=== PATIENT | female | born 1965 | race American Indian/Alaskan Native ===

== ENCOUNTER 2024-06-26 14:02 | Outpatient (RCR) | payer MEDICAID, SELFPAY | END 2024-07-21 23:59 | disposition home or self-care (01) | LOC: SCTC 14:02 | PROVIDERS: PCP Nurse Practitioner Family; Referring Provider Nurse Practitioner Family; Visit Provider Nurse Practitioner Family | DX: D72.820 Lymphocytosis (symptomatic) (principal); R59.0 Localized enlarged lymph nodes; R10.32 Left lower quadrant pain; F17.210 Nicotine dependence, cigarettes, uncomplicated; I10 Essential (primary) hypertension; E11.9 Type 2 diabetes mellitus without complications; E78.5 Hyperlipidemia, unspecified; Z87.19 Personal history of other diseases of the digestive system | CPT/HCPCS: 99212; G0463 ==

== ENCOUNTER 2024-07-25 10:35 | Outpatient (RCR) | payer MEDICAID, SELFPAY | END 2024-08-21 23:59 | disposition home or self-care (01) | LOC: SCTC 10:35 | PROVIDERS: PCP Internal Medicine; Referring Provider Nurse Practitioner Family; Visit Provider Nurse Practitioner Family | DX: R59.0 Localized enlarged lymph nodes (principal); R10.32 Left lower quadrant pain; E21.3 Hyperparathyroidism, unspecified; E83.52 Hypercalcemia; F17.210 Nicotine dependence, cigarettes, uncomplicated; I10 Essential (primary) hypertension; E11.9 Type 2 diabetes mellitus without complications; E78.5 Hyperlipidemia, unspecified | CPT/HCPCS: 99212; G0463 ==

== ENCOUNTER → 2024-08-08 | Outpatient (CLI) | payer MEDICAID, SELFPAY ==
--- NOTE | 2024-08-08 11:30 | XR_ITS ---
Examination: Ultrasound soft tissue neck TECHNIQUE: Multiple high-resolution grayscale sonographic images soft tissue neck Exam date and time: August 08, 2024 1143 hours INDICATIONS: Neck swelling months, he soft tissue 05/10/2024 bilateral carotid triangle lymph nodes, the largest on the left side 15 mm right side 12 mm FINDINGS: Bilateral carotid triangle lymph nodes, the largest on the right side 17 x 22 mm, the left side 19 x 15 mm IMPRESSION: Significant soft tissue neck lymphadenopathy Recommend repeat CT soft tissue neck post intravenous contrast follow-up
== END | disposition home or self-care (01) ==
LOC: CDIM 11:09
PROVIDERS: PCP Nurse Practitioner Family; Referring Provider Nurse Practitioner Family; Visit Provider Nurse Practitioner Family
DX: R59.0 Localized enlarged lymph nodes (principal)
CPT/HCPCS: 76536

== ENCOUNTER → 2024-08-29 | Outpatient (CLI) | payer MEDICAID, SELFPAY ==
--- NOTE | 2024-08-29 13:00 | XR_ITS ---
Examination: CT abdomen with intravenous contrast CT pelvis with intravenous contrast 2-D coronal reconstructions 2-D sagittal reconstructions Date and time of exam:August 29, 2024 1405 hours Comparison June 01, 2023 INDICATIONS: Diagnosis symptomatic lymphocytosis, diagnosis dysphagia epigastric pain beginning one year ago, diagnosis acute pancreatitis June 01, 2023. CTDI: vol (mGy) 15.9 DLP: (mGycm) 967 Technique: Multiple axial sections of the abdomen and pelvis have been obtained. 64 slice high-resolution scanner used. 3 mm axial sections have been obtained, post intravenous injection 60 cc [id number] 2-D sagittal, coronal reconstructions obtained. Low dose protocols were performed. One or more of the following dose reduction techniques were used; automated exposure control, adjustment of the mA and/or KV according to patient size, use of iterative reconstruction technique. Findings: No focal liver or splenic lesion Contracted gallbladder No pancreatic or adrenal mass 2 mm lower pole left renal calculus No abdominal or pelvic lymphadenopathy Normal appendix Scattered colonic diverticulosis, no diverticulitis Retroverted uterus Suspicious for uterine mass, axial image 213, measuring 33 mm Mild osteopenia IMPRESSION: 2 mm lower pole left renal calculus No abdominal or pelvic lymphadenopathy Recommend pelvic sonography to exclude 33 mm uterine mass
== END | disposition home or self-care (01) ==
LOC: SCAT 08-30 09:22
PROVIDERS: PCP Internal Medicine; Referring Provider Nurse Practitioner Family; Visit Provider Nurse Practitioner Family
DX: N20.0 Calculus of kidney (principal)
CPT/HCPCS: 74177; A4649; Q9967

== ENCOUNTER → 2024-09-04 | Outpatient (CLI) | payer MEDICAID, SELFPAY ==
--- NOTE | 2024-09-04 13:53 | XR_ITS ---
Examination: Right elbow 3 views Technique: Elbow AP, oblique, lateral 3 views Exam date and time: September 04, 2024 1410 hours INDICATIONS: Injury to the elbow one month ago with persistent elbow pain. FINDINGS: Mild osteoarthritis No fracture No elbow effusion IMPRESSION: No fracture.
== END | disposition home or self-care (01) ==
PROVIDERS: PCP Internal Medicine; Referring Provider Internal Medicine; Visit Provider Internal Medicine
DX: S59.902A Unspecified injury of left elbow, initial encounter (principal); X58.XXXA Exposure to other specified factors, initial encounter
CPT/HCPCS: 73080

== ENCOUNTER 2024-09-05 11:22 | Outpatient (RCR) | payer MEDICAID, SELFPAY | END 2024-09-21 23:59 | disposition home or self-care (01) | LOC: SCTC 11:22 | PROVIDERS: PCP Internal Medicine; Referring Provider Internal Medicine; Visit Provider Nurse Practitioner Family | DX: R59.0 Localized enlarged lymph nodes (principal); Z86.2 Personal history of diseases of the blood and blood-forming organs and certain disorders involving the immune mechanism; Z87.42 Personal history of other diseases of the female genital tract; Z78.0 Asymptomatic menopausal state; F17.210 Nicotine dependence, cigarettes, uncomplicated; R10.32 Left lower quadrant pain | CPT/HCPCS: 99213; G0463 ==

== ENCOUNTER → 2024-09-26 | Outpatient (CLI) | payer MEDICAID, SELFPAY ==
--- NOTE | 2024-09-26 15:30 | XR_ITS ---
Examination: Pelvic ultrasound, transabdominal, complete Technique: Transabdominal ultrasound of the pelvis performed using grayscale imaging Date and time of exam: Febrile 03/26/2025 1559 hours INDICATIONS: CT abdomen pelvis August 29, 2024 33 mm uterine mass, history right-sided upper abdominal pain epigastric pain and nausea May 2023 FINDINGS: Uterus 6.9 x 5.7 x 4.7 cm retroverted No uterine mass Endometrial sign 0.6 cm Ovaries obscured by bowel gas IMPRESSION: No uterine mass identified
== END | disposition home or self-care (01) ==
LOC: CDIM 15:49
PROVIDERS: Referring Provider Nurse Practitioner Family; Visit Provider Nurse Practitioner Family
DX: D72.820 Lymphocytosis (symptomatic) (principal)
CPT/HCPCS: 76856

== ENCOUNTER 2024-10-03 09:01 | Outpatient (RCR) | payer MEDICAID, SELFPAY | END 2024-10-19 23:59 | disposition home or self-care (01) | LOC: SCTC 09:01 | PROVIDERS: PCP Internal Medicine; Referring Provider Nurse Practitioner Family; Visit Provider Nurse Practitioner Family | DX: R59.0 Localized enlarged lymph nodes (principal); D72.820 Lymphocytosis (symptomatic); D72.829 Elevated white blood cell count, unspecified; Z78.0 Asymptomatic menopausal state; F17.210 Nicotine dependence, cigarettes, uncomplicated; E21.3 Hyperparathyroidism, unspecified | CPT/HCPCS: 99212; G0463 ==

== ENCOUNTER → 2024-10-26 | Outpatient (BNVA) | payer MEDICAID, SELFPAY | END | disposition home or self-care (01) | PROVIDERS: PCP Nurse Practitioner Family; Referring Provider Nurse Practitioner Family; Visit Provider Urology | DX: N39.0 Urinary tract infection, site not specified (principal); N39.41 Urge incontinence; E11.9 Type 2 diabetes mellitus without complications; I10 Essential (primary) hypertension; E66.9 Obesity, unspecified; Z68.35 Body mass index [BMI] 35.0-35.9, adult; F17.210 Nicotine dependence, cigarettes, uncomplicated; K21.9 Gastro-esophageal reflux disease without esophagitis | CPT/HCPCS: 81003; 99212; G0463 ==

== ENCOUNTER 2024-11-14 08:32 | Outpatient (RCR) | payer MEDICAID, SELFPAY | END 2024-11-19 23:59 | disposition home or self-care (01) | LOC: SCTC 08:32 | PROVIDERS: PCP Family Medicine; Referring Provider Nurse Practitioner Family; Visit Provider Nurse Practitioner Family | DX: D72.820 Lymphocytosis (symptomatic) (principal) | CPT/HCPCS: 36415 ==

== ENCOUNTER 2024-11-26 10:46 | Outpatient (RCR) | payer MEDICAID, SELFPAY | END 2024-12-19 23:59 | disposition home or self-care (01) | LOC: SCTC 10:46 | PROVIDERS: PCP Family Medicine; Referring Provider Family Medicine; Visit Provider Nurse Practitioner Family | DX: D72.820 Lymphocytosis (symptomatic) (principal); R59.0 Localized enlarged lymph nodes; Z78.0 Asymptomatic menopausal state; F17.210 Nicotine dependence, cigarettes, uncomplicated; E21.3 Hyperparathyroidism, unspecified | CPT/HCPCS: 99212; G0463 ==

== ENCOUNTER 2025-01-28 10:38 | Outpatient (RCR) | payer MEDICAID, SELFPAY | END 2025-02-18 23:59 | disposition home or self-care (01) | LOC: SCTC 10:38 | PROVIDERS: PCP Internal Medicine; Referring Provider Family Medicine; Visit Provider Nurse Practitioner Family | DX: D72.820 Lymphocytosis (symptomatic) (principal); R10.2 Pelvic and perineal pain; E21.3 Hyperparathyroidism, unspecified; Z87.891 Personal history of nicotine dependence; Z71.6 Tobacco abuse counseling | CPT/HCPCS: 99212; G0463 ==

== ENCOUNTER 2025-04-11 14:05 | Outpatient (RCR) | payer MEDICAID, SELFPAY | END 2025-04-21 23:59 | disposition home or self-care (01) | LOC: SCTC 14:05 | PROVIDERS: PCP Internal Medicine; Referring Provider Internal Medicine; Visit Provider Nurse Practitioner Family | DX: D72.820 Lymphocytosis (symptomatic) (principal); N85.9 Noninflammatory disorder of uterus, unspecified; E21.3 Hyperparathyroidism, unspecified; Z87.891 Personal history of nicotine dependence | CPT/HCPCS: 99212; G0463 ==

== ENCOUNTER → 2025-04-30 | Outpatient (CLI) | payer MEDICAID, SELFPAY ==
--- NOTE | 2025-04-30 11:30 | XR_ITS ---
Examination: Transvaginal ultrasound of the pelvis, complete Technique: Transvaginal sonographic images pelvis performed using hinojosa scale imaging Exam date and time: April 30, 2025 1141 hours INDICATIONS: Intermittent left-sided pelvic pain beginning 2 years ago. FINDINGS: Uterus 8.4 cm endometrial stripe 0.5 cm No uterine mass or intrauterine gestation Ovaries obscured by bowel gas IMPRESSION: Limited study No uterine mass.
--- NOTE | 2025-04-30 11:30 | XR_ITS ---
Examination: Pelvic ultrasound, transabdominal, complete Technique: Transabdominal ultrasound of the pelvis performed using grayscale imaging Date and time of exam: April 30, 2025 1132 hours INDICATIONS: Left-sided pelvic pain beginning 2 years ago, history ovarian cystic disease FINDINGS: Uterus 9.4 cm retroverted endometrial stripe 0.8 cm no uterine mass Ovaries obscured by bowel gas IMPRESSION: Limited study No uterine mass
== END | disposition home or self-care (01) ==
PROVIDERS: PCP Internal Medicine; Referring Provider Obstetrics & Gynecology; Visit Provider Obstetrics & Gynecology
DX: R10.2 Pelvic and perineal pain (principal)
CPT/HCPCS: 76830; 76856

== ENCOUNTER → 2025-06-17 | Outpatient (BNVA) | payer MEDICAID, SELFPAY | END | disposition home or self-care (01) | PROVIDERS: PCP Nurse Practitioner Family; Referring Provider Nurse Practitioner Family; Visit Provider Urology | DX: R32 Unspecified urinary incontinence (principal); E11.9 Type 2 diabetes mellitus without complications; I10 Essential (primary) hypertension; E66.9 Obesity, unspecified; Z68.35 Body mass index [BMI] 35.0-35.9, adult; F17.210 Nicotine dependence, cigarettes, uncomplicated; Z71.6 Tobacco abuse counseling | CPT/HCPCS: 81003; 99212; G0463 ==

== ENCOUNTER 2025-07-23 13:02 | Outpatient (RCR) | payer MEDICAID, SELFPAY ==
--- NOTE | 2025-07-23 15:20 | CTCFLWUP_ITS ---
Patient: ARMIDA TAYLOR : 1965 Page 5 of 7 FOLLOW UP NOTE DATE OF SERVICE: 07/23/2025 NAME: ARMIDA TAYLOR ACCOUNT: [id number] : 1965 AGE: 60 INTERVAL HISTORY: Patient is here for follow up. Patient see me for leukocytosis. Was ntoed to have neck swelling and lung nodules which look high risk . was seen by commercial review appraiser and planned for surgery . ONCOLOGY HISTORY: DIAGNOSIS: Lymphocytosis Flow cytometry negative, 03/07/2024. Bone marrow biopsy negative 11/15/2024. No hepatosplenomegaly, US, 03/07/2024. Obesity, 235 lb, 37.9 BMI, 04/05/2024. History of hyperparathyroidism, and hypercalcemia, f/u with endocrinology Cervical lymphadenopathy, ultrasound 08/08/2024 HISTORY OF PRESENT ILLNESS: HISTORY: Patient was referred due to elevated lymphocytes. Patient has a past medical history of hyperparathyroidism, follows up with commercial review appraiser in [place], history of hypertension diabetes hyperlipidemia, pancreatitis, follows up with Dr. Jac TURPIN. Patient smokes about 6 cigarettes a day. History of former drug use, methamphetamine. 08/05/2023: Lymphs absolute 3.4 WBC 10.1, hemoglobin 12.4, MCV 85, platelets 317,000, ANC 5.8 09/12/2023: Lymphs absolute 3.8, WBC 10.4, hemoglobin 13.2, MCV 86, platelets 279,000, ANC 5.7 10/25/2023: CT neck without contrast 11/24/2023: Lymphs absolute 3.4, WBC 8.0, hemoglobin 13.3, MCV 84, platelets 289,000, ANC 3.7 03/05/2024: Ultrasound of abdomen Conclusion: The gallbladder is unremarkable. No pericholecystic fluid accumulation. No hepatosplenomegaly. The liver measures 16.5 cm and the spleen 7.9 cm. The measurements of the kidneys are unremarkable. Otherwise as above. 03/07/2024: 03/07/2024: 04/02/2024: Ultrasound soft tissue neck 04/02/2024: CT chest without contrast 05/02/2024: Abdominal ultrasound limited-fatty infiltration no focal liver lesions, negative for gallstones 05/10/2024: CT soft tissue neck with contrast-bilateral carotid triangle lymph nodes the largest on the left side 59 is on the right side 12 mm 06/05/2024: Lymphs absolute 3.5 (0.7-3.1), WBC 10.3, hemoglobin 12.9, MCV 86, platelets 391,000, ANC 5.8 OTHER MEDICAL HISTORY/CONDITIONS: Diabetes HTN Hyperlipidemia Pancreatitis - 06/13 Left rotator cuff repair - 2016 Right breast biopsy x2 - 01/12; 01/10/24 Tubal ligation - 1987 Bladder sling x2 ? 2018 f/u with Dr. Viramontes Hyperparathyroidism, following up with endocrinology, next follow-up is 03/2025, commercial review appraiser is in [place]. Recent diagnosis of Multiple sclerosis f/u with neurology 2024 FAMILY HISTORY: Lung - dx 58 Gallbladder - dx 53 Sister - ovarian - dx 39 Mat aunt - leukemia- dx50's; 1 st cousin - brain - dx 55 SOCIAL HISTORY: Social History Smoking Cessation Counseling - Smoking cessation education Occupational History - Unemployed Education Level - Completed 11th grade Marital Status - Tobacco Use Note - Smokes 3-5 cigarettes/day x 20 yrs - still smoking ETOH Use Note - Denies Drug Note - Meth daily x 3-4 months - 15yrs ago Abuse/Neglect Note - Denies Social History Note 2 - Lives alone [employer] HISTORY: Menarche - Age - 12 Menopause1 - 48 - Pregnancies - 5 Para Live Births - 3 Age 1st - 16 Gynecological Note - 2 miscarriages MEDICATIONS: 1. amlodipine - 5 mg 1 tab Daily 2. losartan - 100 mg 1 tab Daily 3. nitroglycerin - 0.4 mg 1 tab As directed 4. oxybutynin chloride - 5 mg 1 tab Daily 5. Ozempic - 1 mg/dose (2 mg/1.5 mL) Weekly Medications Last Reconciled by Ema Naidu MD on 07/23/2025 ALLERGIES: codeine sulfate; tramadol REVIEW OF SYSTEMS: A complete 14-point review of systems was performed and is negative except as noted in interval history. PHYSICAL EXAMINATION: VITAL SIGNS: Temperature?99.4, B/P?153/91, Oxygen?Saturation?97% Weight?227?lbs PAIN: 0 - No pain ECOG Performance Status: 0 - Asymptomatic and fully active GENERAL APPEARANCE: Appears well, in no apparent distress, appropriately interactive. HEENT: Normocephalic, no temporal wasting, normal conjunctiva, no scleral icterus, normal hearing, lips without lesions CARDIOVASCULAR: Not assessed. PULMONARY: Normal respiratory effort, no respiratory distress or use of accessory muscles, speaking in full sentences, no tachypnea. EXTREMITIES: No cyanosis. SKIN: Normal skin appearance. NEUROLOGIC: Alert and oriented x4. PSHYCHIATRIC: Appropriate affect, mood normal, behavior normal, intact thought and speech. LABORATORY DATA: I have personally reviewed and interpreted each of the patient?s relevant lab tests, abnormal findings are below: Date ASSESSMENT/PLAN: Armida Taylor, 60-year-old female with history of lymphocytosis, presenting for follow-up of multiple issues. Lymphocytosis Assessment: Patient has a history of lymphocytosis with recent labs showing improvement but still elevated levels). Previous bone marrow biopsy (10/30/2023) and flow cytometry (03/07/2024) were negative. Ultrasound on 03/07/[address]24 showed [address]. CT on 01/08/2024 revealed cervical lymphadenopathy with carotid triangle lymph nodes measuring 15mm left and 12mm right. Biopsy not recommended by Dr. Merchant and IR department at [facility] [place] appt. with Dr. Hoang in February for second opinion for lymphocytosis, we will request note - Ultrasound of neck showed thyroid nodule. Endocrinology following and planned for surgery - follow up after surgery Possible Multiple Sclerosis Assessment: Patient is being evaluated for possible MS. Neurologist in [place] mentioned probable MS but did not start medication. MRI of brain showed lesions. Lumbar puncture was recommended for definitive diagnosis. Patient reports history of slurred speech, imbalance, and memory issues, which the neurologist suggested could be due to an old small stroke. No neurological deficits during today's appt. Plan: - Continue follow up with neurologist Uterine mass Assessment: Patient reports abdominal pain in the past, none at this time and is being followed by gynecology for a uterine mass. A biopsy of the uterine mass is pending. Plan: - Await results of uterine mass biopsy - Follow up with gynecology department Hyperparathyroidism Assessment: Patient has history of elevated PTH abd hypercalcemia. Bone density test in November last year was normal. Not taking calcium supplements. Previously was following up with commercial review appraiser area recently saw a local commercial review appraiser for consultation to establish care with local commercial review appraiser. Plan: - continue following up with commercial review appraiser, next follow up in a couple of weeks, pending lab results. Tobacco Use Assessment: Smoking history. CT without contrast on January 07, 2024, showed no pulmonary nodules. Plan: - Provide smoking cessation counseling and resources RTC in 6 months or as needed with [facility] ORDERS: Order # Description [id number] Comprehensive Metabolic Panel - 12 + CBC with Auto Diff [id number] Ferritin + Iron Panel + Vitamin B-12 + Folic Acid; Serum [id number] MD Follow Up 6 Month [id number] MD Follow Up 2 Months [id number] Thyroid Stimulating Hormone + Assay Triiodothyronine (T3) + Thyroxine, Free [id number] RETURN TO CLINIC: I reviewed the diagnosis, prognosis, and recommended treatment/procedure options with the patient (and/or their legal security representative), including the potential benefits, risks, side effects and alternative therapies. We also discussed the option of no treatment and the possibility of clinical trial participation, if applicable. All questions were addressed, and they demonstrated understanding. They provided informed consent to proceed with the proposed plan of care. BILLING AND COMPLIANCE: I reviewed external records from providers outside my specialty as summarized above. I spent a total of 50 minutes on this patient?s care on the day of their visit excluding time spent related to any billed procedures. This time includes time spent with the patient as well as time spent documenting in the medical record, reviewing patients records and tests, obtaining history, placing orders, communicating with other healthcare professionals, counseling the patient, family or caregiver, and/or care coordination for the diagnoses above. Electronically Signed by: Marshal Rust MD T: 3:17 PM CC: PCP: Elin Parekh Referring: Elin Parekh This document was completed utilizing speech recognition software. Grammatical errors, random word insertions, pronoun errors, and incomplete sentences are an occasional consequence of this system due to software limitations, ambient noise, and hardware issues. Any formal questions or concerns about the content, text or information contained within the body of this dictation should be directly addressed to the provider for clarification.
== END 2025-08-21 23:59 | disposition home or self-care (01) ==
LOC: SCTC 13:02
PROVIDERS: PCP Internal Medicine; Referring Provider Internal Medicine; Visit Provider Internal Medicine Hematology & Oncology
DX: D72.820 Lymphocytosis (symptomatic) (principal); N85.8 Other specified noninflammatory disorders of uterus; E21.3 Hyperparathyroidism, unspecified; F17.210 Nicotine dependence, cigarettes, uncomplicated; Z71.6 Tobacco abuse counseling
CPT/HCPCS: 99212; G0463